=== PATIENT | female | born 1975 | race Caucasian/White ===

== ENCOUNTER 2017-02-19 13:45 | Emergency (ER) | payer OTHER, SELFPAY ==
[2017-02-19] MEDS ORDERED: AMOXicillin 250 MG CAP ONE (14:33)
[2017-02-19] MEDS ORDERED: Benzonatate 100 MG CAP ONE (14:34)
== END 2017-02-19 14:55 | disposition home or self-care (01) ==
LOC: MADERS 13:45
DX: J06.9 Acute upper respiratory infection, unspecified (principal); F41.9 Anxiety disorder, unspecified
CPT/HCPCS: 87081; 87430; 99283